=== PATIENT | male | born 1985 | race Caucasian/White ===

== ENCOUNTER 2016-05-08 17:42 | Emergency (ER) | payer BC ==
--- NOTE | 2016-05-08 18:14 | ER Document Report ---
ED Medical Screen (RME) - General Stated Complaint: ABDOMINAL PAIN Mode of Arrival: Ambulatory Information source: Patient Notes: 30 y/o M presents to ED c/o mid upper abd pain over the last 2 hrs. Reports had similar episode yesterday which self-resolved. Denies fever, n/v. Last normal BM yesterday. I have greeted and performed a rapid initial assessment of this patient. A comprehensive ED assessment and evaluation of the patient, analysis of test results and completion of the medical decision making process will be conducted by additional ED providers. Physical Exam - General General appearance: Appears well, Alert In distress: None - Respiratory Respiratory status: No respiratory distress - Abdominal Inspection: Normal Tenderness: Tender - Mild tenderness with palpation to mid upper abdomen. No: Nontender, McBurney's point, Grimes's sign, Guarding, Rebound, Other
[2016-05-08 18:54] LABS: ABSOLUTE LYMPHOCYTES (AUTO) 1.2 10^3/uL (0.5-4.7); ABSOLUTE MONOCYTES (AUTO) 0.7 10^3/uL (0.1-1.4); ABSOLUTE NEUT (AUTO) 9.6 10^3/uL (1.7-8.2); BASOPHILS % (AUTO) 0.2 % (0-2); EOSINOPHILS % (AUTO) 0.2 % (0-6); HEMATOCRIT 44.4 % (37.9-51.0); HGB HCT DIFFERENCE 0.6; LYMPHOCYTES % (AUTO) 10.6 % (13-45); MEAN CORPUSCULAR HEMOGLOBIN 30.4 pg (27.0-33.4); MEAN CORPUSCULAR HGB CONC 33.8 g/dL (32.0-36.0); MEAN CORPUSCULAR VOLUME 90 fl (80-97); MONOCYTES % (AUTO) 5.7 % (3-13); RED BLOOD COUNT 4.93 10^6/uL (4.35-5.55); RED CELL DISTRIBUTION WIDTH 12.8 % (11.5-14.0); SEGMENTED NEUTROPHILS % (AUTO) 83.3 % (42-78); WHITE BLOOD COUNT 11.6 10^3/uL (4.0-10.5)
[2016-05-08 19:10] LABS: APPEARANCE,URINE SLIGHTLY-CLOUDY; BILIRUBIN,URINE NEGATIVE (NEGATIVE); GLUCOSE, URINE NEGATIVE (NEGATIVE); KETONES,URINE NEGATIVE (NEGATIVE); LEUKOCYTE ESTERASE,URINE NEGATIVE (NEGATIVE); NITRITE,URINE NEGATIVE (NEGATIVE); PROTEIN,URINE NEGATIVE (NEGATIVE); URINE SPECIFIC GRAVITY 1.031
[2016-05-08 19:15] LABS: ALANINE AMINOTRANSFERASE 123 U/L (21-72); ALKALINE PHOSPHATASE 62 U/L (38-126); ANION GAP 13 (5-19); ASPARTATE AMINO TRANSFERASE 143 U/L (17-59); BILIRUBIN,TOTAL 1.4 mg/dL (0.2-1.3); BLOOD UREA NITROGEN 18 mg/dL (7-20); CALCIUM 10.4 mg/dL (8.4-10.2); CARBON DIOXIDE 29 mmol/L (22-30); CHLORIDE 101 mmol/L (98-107); CREATININE RESULT 0.96 mg/dL (0.52-1.25); GLUCOSE 96 mg/dL (75-110); LIPASE 91.7 U/L (23-300); POTASSIUM 4.1 mmol/L (3.6-5.0); SODIUM 143.2 mmol/L (137-145); TOTAL PROTEIN 7.9 g/dL (6.3-8.2)
[2016-05-08] MEDS ORDERED: SUCRALFATE 1 GM TABLET PO ONE (21:26)
--- NOTE | 2016-05-08 21:28 | ER Document Report ---
ED GI/ - General Chief Complaint: Abdominal Pain Stated Complaint: ABDOMINAL PAIN Mode of Arrival: Ambulatory Notes: Patient is a 30-year-old male that comes emergency department with chief complaint of pain in his upper abdomen that was sharp and started a few hours before arrival to the emergency department, patient states that he also had similar symptoms a couple of days ago after he awoke which felt like "heartburn " after he had eaten [place] for dinner. Patient denies any nausea or vomiting , denies any abnormal bowel movements, denies any current symptoms. States he has had a recent ultrasound which showed he has MARIA, he denies any recent alcohol use. Patient is on omeprazole, states he has had an endoscopy which showed some gastritis. TRAVEL OUTSIDE OF THE [place] IN LAST 30 DAYS: No - Related Data Allergies/Adverse Reactions: No Known Allergies Allergy (Verified 05/08/16 18:15) Past Medical History - General Information source: Patient - Social History Smoking Status: Never Smoker Chew tobacco use (# tins/day): No Frequency of alcohol use: None Drug Abuse: None Lives with: Family Family History: Reviewed & Not Pertinent Patient has suicidal ideation: No Patient has homicidal ideation: No - Medical History Medical History: Negative Renal/ Medical History: Denies: Hx Peritoneal Dialysis GI Medical History: Reports: Hx Gastritis, Other - MARIA Surgical Hx: Negative - Immunizations Immunizations up to date: Yes Hx Diphtheria, Pertussis, Tetanus Vaccination: Yes Review of Systems - Review of Systems Constitutional: No symptoms reported EENT: No symptoms reported Cardiovascular: No symptoms reported Respiratory: No symptoms reported Gastrointestinal: See HPI Genitourinary: No symptoms reported Male Genitourinary: No symptoms reported Musculoskeletal: No symptoms reported Skin: No symptoms reported Hematologic/Lymphatic: No symptoms reported Neurological/Psychological: No symptoms reported Physical Exam - Vital signs Vitals: Temp Pulse Resp BP Pulse Ox 98.6 F 77 18 122/88 H 96 05/08/16 22:00 05/08/16 22:00 05/08/16 22:00 05/08/16 22:00 05/08/16 22:00 Interpretation: Normal - General General appearance: Appears well, Alert In distress: None - Patient is alert and well-appearing - HEENT Head: Normocephalic, Atraumatic Eyes: Normal Conjunctiva: Normal Extraocular movements intact: Yes Eyelashes: Normal Pupils: PERRL Nasal: Normal Mouth/Lips: Normal Mucous membranes: Normal Pharynx: Normal Neck: Normal - Respiratory Respiratory status: No respiratory distress Chest status: Nontender Breath sounds: Normal Chest palpation: Normal - Cardiovascular Rhythm: Regular. No: Tachycardia Heart sounds: Normal auscultation, S1 appreciated, S2 appreciated Murmur: No - Abdominal Inspection: Normal Distension: No distension Bowel sounds: Normal Tenderness: Nontender. No: Tender, Rebound - Back Back: Normal, Nontender. No: Tender, CVA tenderness - Extremities General upper extremity: Normal inspection, Nontender, Normal color, Normal ROM , Normal temperature General lower extremity: Normal inspection, Nontender, Normal color, Normal ROM , Normal temperature, Normal weight bearing. No: Bruna's sign - Neurological Neuro grossly intact: Yes Cognition: Normal Orientation: AAOx4 [place] Coma Scale Eye Opening: Spontaneous [place] Coma Scale Verbal: Oriented [place] Coma Scale Motor: Obeys Commands [place] Coma Scale Total: 15 Speech: Normal Motor strength normal: LUE, RUE, LLE, RLE Sensory: Normal - Psychological Associated symptoms: Normal affect, Normal mood - Skin Skin Temperature: Warm Skin Moisture: Dry Skin Color: Normal Course - Re-evaluation Re-evalutation: Completely soft and nontender abdomen on my examination. Patient is not complaining of any symptoms currently. Mild leukocytosis with no bandemia, nonspecific. Patient has elevated LFTs, AST is greater than ALT, however patient reports a history consistent with MARIA, states his LFTs are only slightly elevated. Direct bilirubin is unremarkable. Patient is very on omeprazole, given Carafate for additional symptom management, recommended patient to get follow-up HIDA scan along with primary care management, discussed return precautions, because patient is asymptomatic at this time an ultrasound will not be performed, especially since patient recently had a normal one reportedly. Patient states understanding and agreement. - Vital Signs Vital signs: Temp Pulse Resp BP Pulse Ox 98.6 F 77 18 122/88 H 96 05/08/16 22:00 05/08/16 22:00 05/08/16 22:00 05/08/16 22:00 05/08/16 22:00 - Laboratory Result Diagrams: 05/08/16 18:20 05/08/16 18:20 Laboratory results interpreted by me: 02/23/17 02/23/17 02/23/17 18:20 18:20 18:20 WBC 11.6 H Seg Neutrophils % 83.3 H Lymphocytes % 10.6 L Absolute Neutrophils 9.6 H Calcium 10.4 H Total Bilirubin 1.4 H AST 143 H ALT 123 H Urine Urobilinogen 2.0 H Discharge - Discharge Clinical Impression: Upper abdominal pain Condition: Stable Disposition: HOME, SELF-CARE Additional Instructions: At this time it is uncertain of the exact source of ear pain, take Carafate in addition to the omeprazole that you have, hydrate (your workup indicates you are not well hydrated), and follow up with your Primary for additional evaluation. Return to the emergency department for any concerning or worsening symptoms including returned or severe abdominal pain, vomiting, etc. Prescriptions: Sucralfate [Carafate 1 gm Tablet] 1 gm PO QID #20 tablet
[2016-05-08 22:51] VITALS: BP 122/88
== END 2016-05-08 22:49 | disposition home or self-care (01) ==
LOC: ER 17:42
DX: K29.70 Gastritis, unspecified, without bleeding (principal); D72.829 Elevated white blood cell count, unspecified; R10.10 Upper abdominal pain, unspecified; R79.89 Other specified abnormal findings of blood chemistry; Z79.899 Other long term (current) drug therapy; Z87.19 Personal history of other diseases of the digestive system
CPT/HCPCS: 36415; 80053; 81001; 83690; 85025; 99284